=== PATIENT | female | born 1985 | race Caucasian/White ===

== ENCOUNTER 2018-09-24 10:58 | Emergency (ER) | payer BC ==
[~2018-09-24] VITALS: Ht 152.4 cm; Wt 58.1 kg
[~2018-09-24 10:58] MED LIST: MECL-272 PO
--- NOTE | 2018-09-24 10:58 | NUR ---
Ashwin rutledge in ED - 09/24/18 at 1114 by [facility] PT [facility] PD FOR PREBOOK
[2018-09-24 11:00] VITALS: BP 159/92
[2018-09-24 11:05] VITALS: BP 105/71
--- NOTE | 2018-09-24 11:05 | NUR ---
PATIENT PRESENTS TO ED WITH C/O CHEST PAIN . PT STATES SHE WOKE UP TODAY FEELING PRESSURE PAIN ON HER CHEST AND SOME NUMBNESS ON HER LEFT ARM . DENIES N/V/D; SKIN IS PINK/WARM/DRY; AAOX4 WITH EVEN AND STEADY GAIT; LUNGS CLEAR BL; HR EVEN AND REGULAR; PT DENIES ANY FEVER, SOB, OR COUGH AT THIS TIME; PATIENT STATES PAIN OF 5/10 AT THIS TIME; VSS; PATIENT POSITIONED FOR COMFORT; HOB ELEVATED; BEDRAILS UP X2; BED DOWN. ER MD MADE AWARE OF PT STATUS.
--- NOTE | 2018-09-24 11:14 | NUR ---
PT AMBULATES TO BED 6
[2018-09-24] MEDS ORDERED: OMEP20TC12 PO (11:21)
--- NOTE | 2018-09-24 11:34 | NUR ---
Patient being evaluated by physician at bedside.
[2018-09-24] MEDS ORDERED: LORazepam 2 MG/ML VIAL IVP ONE (11:40)
[2018-09-24] MEDS ORDERED: KETOROLAC 30 MG/ML VIAL IVP ONE (11:40)
--- NOTE | 2018-09-24 11:44 | NUR ---
CALLED RT FOR ABG
--- NOTE | 2018-09-24 11:46 | NUR ---
XRAY AT BEDSIDE
[2018-09-24 12:12] LABS: BASOPHILS # (AUTO) 0.1 K/uL (0.00-0.22); BASOPHILS % (AUTO) 0.8 % (0.0-2.0); EOSINOPHILS # (AUTO) 0.1 K/uL (0-0.4); EOSINOPHILS % (AUTO) 1.3 % (0.0-4.0); HEMATOCRIT 38.6 % (36-48); HEMOGLOBIN 12.6 g/dL (12.0-16.0); MEAN CORPUSCULAR HEMOGLOBIN 29 pg (27-31); MEAN CORPUSCULAR HGB CONC 33 g/dL (33-37); MEAN CORPUSCULAR VOLUME 87.8 fL (80-94); MONOCYTES # (AUTO) 0.4 K/uL (0.8-1.0); MONOCYTES % (AUTO) 6.4 % (1.7-9.3); NEUTROPHILS # (AUTO) 4.2 K/uL (1.8-7.7); NEUTROPHILS % (AUTO) 61.5 % (42.2-75.2); PLATELET COUNT (AUTO) 213 K/uL (140-450); RED BLOOD CELL COUNT(AUTO) 4.39 MIL/uL (4.20-5.40); RED CELL DISTRIBUTION WIDTH 14.1 % (11.6-13.7); WHITE BLOOD COUNT (AUTO) 6.8 K/uL (4.8-10.8)
[2018-09-24 12:29] LABS: ALBUMIN 3.9 g/dL (3.4-5.0); ANION GAP 10.9 (8-16); CARBON DIOXIDE 26.1 mmol/L (21-32); CREATININE 0.7 mg/dL (0.6-1.3); TOTAL BILIRUBIN 0.4 mg/dL (0.0-1.0)
--- NOTE | 2018-09-24 12:30 | NUR ---
PATIENT RESTING AT THIS TIME. NO SIGNS OF DISTRESS.
[2018-09-24 12:35] LABS: PROTHROMBIN TIME 10.8 secs (10.8-13.4)
[2018-09-24 12:51] LABS: D-DIMER < 100 ng/ml (0-400)
[2018-09-24 14:30] VITALS: BP 118/72
--- NOTE | 2018-09-24 14:30 | NUR ---
Patient discharged with v/s stable. Written and verbal after care instructions given and explained. Patient alert, oriented and verbalized understanding of instructions. Ambulatory with steady gait. All questions addressed prior to discharge. ID band removed. Patient advised to follow up with PMD. Rx of VISTARIL 25MG given. Patient educated on indication of medication including possible reaction and side effects. Opportunity to ask questions provided and answered.
== END 2018-09-24 14:30 | disposition home or self-care (01) ==
LOC: MED 10:58
DX: F41.0 Panic disorder [episodic paroxysmal anxiety] (principal); R07.89 Other chest pain; K58.9 Irritable bowel syndrome, unspecified; Z79.899 Other long term (current) drug therapy; Z88.8 Allergy status to other drugs, medicaments and biological substances
CPT/HCPCS: 36415; 36600; 71045; 80053; 82803; 83880; 84484; 85025; 85379; 85610; 85730; 96374; 96375; 99285; J1885; J2060; Q0092

== ENCOUNTER 2019-06-20 21:55 | Emergency (ER) | payer BC ==
[~2019-06-20] VITALS: Ht 160 cm; Wt 56.2 kg
[~2019-06-20 21:55] MED LIST changes: -MECL-272 PO; +OMEP20TC12 PO
[2019-06-20 22:15] VITALS: BP 130/90
--- NOTE | 2019-06-20 22:18 | NUR ---
TO LOBBY A/W BED, AMBULATORY
--- NOTE | 2019-06-21 00:02 | NUR ---
PT AMBULATED TO BED 02.
--- NOTE | 2019-06-21 00:05 | NUR ---
PT CAME TO ER C/O LOWER ABDOMINAL PAIN RADIATING TO LOWER BACK. PAIN LEVEL 10/10, BURNING. ABDOMEN IS SOFT, TENDER TO TOUCH. DENIES ANY N/V/D. PT SEEN IN URGENT CARE 06/17 AND 06/20 AND MEDICATIONS PRESCRIBED PROVIDED NO RELIEF. MED HX: IBS. SAFETY MEASURES IN PLACE. WILL CONTINUE TO MONITOR.
--- NOTE | 2019-06-21 00:09 | NUR ---
Dr. Rich evaluating patient at bedside.
[2019-06-21] MEDS ORDERED: NACL 0.9% 1,000 ML IV ONE (00:10)
[2019-06-21] MEDS ORDERED: ONDANSETRON 4 MG/2 ML VIAL IVP ONE (00:10)
[2019-06-21] MEDS ORDERED: KETOROLAC 30 MG/ML VIAL IVP ONE (00:10)
[2019-06-21 00:32] LABS: BASOPHILS % (AUTO) 0.5 % (0.0-2.0); EOSINOPHILS % (AUTO) 0.4 % (0.0-4.0); HEMATOCRIT 38.5 % (36-48); HEMOGLOBIN 12.5 g/dL (12.0-16.0); LYMPHOCYTES # (AUTO) 1.6 K/uL (2.5-16.5); LYMPHOCYTES % (AUTO) 17.8 % (20.5-51.1); MEAN CORPUSCULAR HEMOGLOBIN 29 pg (27-31); MEAN CORPUSCULAR HGB CONC 33 g/dL (33-37); MEAN CORPUSCULAR VOLUME 89.2 fL (80-94); MONOCYTES # (AUTO) 0.4 K/uL (0.8-1.0); MONOCYTES % (AUTO) 4.2 % (1.7-9.3); NEUTROPHILS # (AUTO) 6.9 K/uL (1.8-7.7); NEUTROPHILS % (AUTO) 77.1 % (42.2-75.2); PLATELET COUNT (AUTO) 201 K/uL (140-450); RED BLOOD CELL COUNT(AUTO) 4.31 MIL/uL (4.20-5.40); RED CELL DISTRIBUTION WIDTH 14.2 % (11.6-13.7)
[2019-06-21 00:42] LABS: ANION GAP 10.6 (8-16); CARBON DIOXIDE 28.3 mmol/L (21-32); CREATININE 0.6 mg/dL (0.6-1.3); POTASSIUM 3.9 mmol/L (3.5-5.1)
[2019-06-21 00:48] LABS: ALBUMIN 4.3 g/dL (3.4-5.0); TOTAL BILIRUBIN 0.4 mg/dL (0.0-1.0)
--- NOTE | 2019-06-21 01:00 | NUR ---
PT AT CT
[2019-06-21] MEDS ORDERED: DICYCLOMINE HCL LIQUID 20 MG, ALUMINUM HYD/MAG/SIMETHICONE 30 ML, LIDOCAINE VISCOUS 2% ... PO ONE ×3 (01:40)
--- NOTE | 2019-06-21 02:13 | NUR ---
Dr. Rich re-evaluating patient at bedside.
[2019-06-21 02:48] VITALS: BP 130/90
--- NOTE | 2019-06-21 02:48 | NUR ---
Patient discharged with v/s stable. Written and verbal after care instructions given and explained. Patient alert, oriented and verbalized understanding of instructions. Ambulatory with steady gait. All questions addressed prior to discharge. ID band removed. Patient advised to follow up with PMD. Rx of ZOFRAN, AND IBUPROFEN WERE given. Patient educated on indication of medication including possible reaction and side effects. Opportunity to ask questions provided and answered.
--- NOTE | 2019-06-23 08:26 | NUR ---
Late entry. Confirmed with RN that 0.9 NS 1000ml IV bolus completed at 0145
== END 2019-06-21 02:48 | disposition home or self-care (01) ==
LOC: MED 21:55
DX: R11.2 Nausea with vomiting, unspecified (principal); R19.7 Diarrhea, unspecified; K42.9 Umbilical hernia without obstruction or gangrene; D25.9 Leiomyoma of uterus, unspecified; Z79.899 Other long term (current) drug therapy; Z88.8 Allergy status to other drugs, medicaments and biological substances
CPT/HCPCS: 36415; 74176; 80053; 81002; 81025; 83690; 85025; 96361; 96372; 96374; 99284; J1885; J2405; J7030

== ENCOUNTER 2019-09-19 13:32 | Emergency (ER) | payer BC ==
[~2019-09-19] VITALS: Ht 152.4 cm; Wt 53.1 kg
[2019-09-19 13:42] VITALS: BP 104/67
[2019-09-19 14:04] LABS: BASOPHILS # (AUTO) 0.1 K/uL (0.00-0.22); BASOPHILS % (AUTO) 0.7 % (0.0-2.0); EOSINOPHILS % (AUTO) 0.5 % (0.0-4.0); HEMATOCRIT 39.8 % (36-48); LYMPHOCYTES # (AUTO) 1.5 K/uL (2.5-16.5); LYMPHOCYTES % (AUTO) 18.8 % (20.5-51.1); MEAN CORPUSCULAR HEMOGLOBIN 29 pg (27-31); MEAN CORPUSCULAR HGB CONC 33 g/dL (33-37); MONOCYTES # (AUTO) 0.3 K/uL (0.8-1.0); MONOCYTES % (AUTO) 3.6 % (1.7-9.3); NEUTROPHILS # (AUTO) 6.1 K/uL (1.8-7.7); NEUTROPHILS % (AUTO) 76.4 % (42.2-75.2); PLATELET COUNT (AUTO) 262 K/uL (140-450); RED BLOOD CELL COUNT(AUTO) 4.47 MIL/uL (4.20-5.40); RED CELL DISTRIBUTION WIDTH 13.9 % (11.6-13.7)
[2019-09-19 14:10] LABS: APPEARANCE,URINE CLEAR (CLEAR); BILIRUBIN,URINE NEGATIVE (NEGATIVE); BLOOD, URINE NEGATIVE (NEGATIVE); COLOR,URINE YELLOW (YELLOW); LEUKOCYTE ESTERASE ,URINE NEGATIVE (NEGATIVE); NITRITE, URINE NEGATIVE (NEGATIVE); PH,URINE 7.5 (5.0-9.0); UGLUCOSE NEGATIVE (NEGATIVE)
[2019-09-19 14:21] LABS: ALBUMIN 4.4 g/dL (3.4-5.0); ANION GAP 13.8 (8-16); CARBON DIOXIDE 27.1 mmol/L (21-32); CREATININE 0.7 mg/dL (0.6-1.3); POTASSIUM 3.9 mmol/L (3.5-5.1); TOTAL BILIRUBIN 0.5 mg/dL (0.0-1.0)
--- NOTE | 2019-09-19 14:26 | NUR ---
PT AMBULATED TO ER BED 04
--- NOTE | 2019-09-19 14:59 | NUR ---
C/O GENERALIZED ABD PAIN, WEAKNESS & HEADACHE & NAUSEA STARTING TODAY. PT REPORTS 1 EPISODE OF VOMITING TODAY. HX: IBS. PATIENT STATES PAIN OF 7/10 AT THIS TIME. PATIENT POSITIONED FOR COMFORT; HOB ELEVATED; BEDRAILS UP X1; BED DOWN. ER MD MADE AWARE OF PT STATUS.
--- NOTE | 2019-09-19 15:39 | NUR ---
Dr. Montoya is evaluating the patient at bedside.
[2019-09-19] MEDS ORDERED: MAG SULF 2000 MG/WATER PREMIX 50 ML IV ONE (15:45)
[2019-09-19] MEDS ORDERED: KETOROLAC 15 MG/ML VIAL IVP ONE (15:45)
[2019-09-19] MEDS ORDERED: NACL 0.9% 1,000 ML IV ONE (15:45)
[2019-09-19] MEDS ORDERED: PROCHLORPERAZINE 10 MG/2 ML VIAL IVP ONE (15:50)
[2019-09-19] MEDS ORDERED: diphenhydrAMINE 50 MG/ML VIAL IVP ONE (15:50)
[2019-09-19 17:07] VITALS: BP 101/58
--- NOTE | 2019-09-19 17:07 | NUR ---
Patient discharged with v/s stable. Written and verbal after care instructions given and explained. Patient verbalized understanding. Ambulatory with steady gait. All questions addressed prior to discharge. Advised to follow up with PMD.
== END 2019-09-19 17:07 | disposition home or self-care (01) ==
LOC: MED 13:32
DX: R10.9 Unspecified abdominal pain (principal); Z79.899 Other long term (current) drug therapy; Z88.8 Allergy status to other drugs, medicaments and biological substances
CPT/HCPCS: 36415; 80053; 81003; 81025; 83690; 85025; 96365; 96375; 99283; J0780; J1200; J1885; J3475; J7030